=== PATIENT | male | born 1985 | race Caucasian/White ===

== ENCOUNTER 2020-06-07 20:17 | Emergency (ER) | payer SELFPAY ==
[~2020-06-07] VITALS: Ht 170 cm; Wt 70.3 kg
[2020-06-07] MEDS ORDERED: NS IV 1000 ML 1,000 ML ONE (20:35)
[2020-06-07] MEDS ORDERED: ONDANSETRON 4 MG/2 ML (SDV) Z0FRAN ONE (20:36)
[2020-06-07] MEDS ORDERED: NS IV 1000 ML 1,000 ML IV STA ×2 (20:42→21:42)
[2020-06-07] MEDS ORDERED: ONDANSETRON 4 MG/2 ML (SDV) Z0FRAN IVP ONE (20:45)
--- NOTE | 2020-06-07 20:47 | ED General ---
General Chief Complaint: Cough/Cold/Flu Symptoms Stated Complaint: NAUSEA;VOMITING;GEN BODY ACHES;COUGH;SOB Source of Information: Patient Exam Limitations: No Limitations History of Present Illness Date Seen by Provider: Jun 07, 2020 Time Seen by Provider: 20:45 Initial Comments Patient is a 34-year-old male who presents to the emergency room today with a chief complaint of 3 days of nausea and vomiting. Patient states he cannot hold anything down even sips of water. Patient denies any sick contacts. He denies any bad food exposures. No recent travel. No sick contacts. Patient denies fevers or chills. He denies URI symptoms. He has a slight cough and shortness of breath with nausea. He denies problems urinating and states that his urine is actually pretty clear. No diarrhea and states that he is having formed stools. Denies black or bloody stools. States that he is a recovering alcoholic but drank some alcohol this morning to see if he could keep food down. States he had no more than a "shot" of liquor this morning. Patient states that he has a history of pancreatitis in the past x2 and this feels different. All other review of systems reviewed and negative except as stated. Timing/Duration: 3-4 Days Severity: Moderate Modifying Factors: worse with Eating Associated Systoms: Malaise, Nausea/Vomiting Allergies and Home Medications Allergies Coded Allergies: kiwi (Verified Allergy, Unknown, 06/07/20) Patient Home Medication List Home Medication List Reviewed: Yes Review of Systems Review of Systems Constitutional: see HPI EENTM: no symptoms reported Respiratory: cough, dyspnea on exertion Gastrointestinal: No constipation, No diarrhea; nausea, vomiting Genitourinary: no symptoms reported Musculoskeletal: no symptoms reported Skin: lumps (Chronic lesions to the subcutaneous tissues of the abdomen and bilateral upper extremities noted, patient states he has "100s"; told they are "benign") All Other Systems Reviewed Negative Unless Noted: Yes Physical Exam Vital Signs Vital Signs - First Documented 06/07/20 20:30 Temp 36.9 Pulse 61 Resp 16 B/P (MAP) 113/67 (82) Pulse Ox 96 O2 Delivery Room Air Capillary Refill : Height, Weight, BMI Height: '" Weight: lbs. oz. kg; BMI Method: General Appearance: No Apparent Distress, WD/WN Eyes: Bilateral Eye PERRL, Bilateral Eye EOMI Neck: Normal Inspection, Non Tender, Supple Respiratory: Chest Non Tender, Lungs Clear, Normal Breath Sounds, No Accessory Muscle Use, No Respiratory Distress Cardiovascular: Regular Rate, Rhythm Gastrointestinal: Normal Bowel Sounds, Soft, Tenderness (Diffuse mild tenderness most pronounced in the epigastrium) Extremity: Normal Capillary Refill, Normal Inspection, Normal Range of Motion, Non Tender, No Pedal Edema Neurologic/Psychiatric: Alert, Oriented x3, No Motor/Sensory Deficits, Normal Mood/Affect, dining room manager II-XII Norm as Tested Skin: Normal Color, Warm/Dry Progress/Results/Core Measures Suspected Sepsis SIRS Temperature: Pulse: Respiratory Rate: Laboratory Tests 06/07/20 20:39: White Blood Count 7.8 Blood Pressure / Mean: Laboratory Tests 06/07/20 20:39: Creatinine 0.92, Platelet Count 347, Total Bilirubin 0.7 Results/Orders Lab Results Laboratory Tests Test 06/07/20 20:39 06/07/20 20:43 06/07/20 20:56 Range/Units White Blood Count 7.8 4.3-11.0 10^3/uL Red Blood Count 4.79 4.30-5.52 10^6/uL Hemoglobin 15.6 13.3-17.7 g/dL Hematocrit 45 40-54 % Mean Corpuscular Volume 93 80-99 fL Mean Corpuscular Hemoglobin 33 25-34 pg Mean Corpuscular Hemoglobin Concent 35 32-36 g/dL Red Cell Distribution Width 11.5 10.0-14.5 % Platelet Count 347 130-400 10^3/uL Mean Platelet Volume 8.8 L 9.0-12.2 fL Immature Granulocyte % (Auto) 0 % Neutrophils (%) (Auto) 48 42-75 % Lymphocytes (%) (Auto) 41 12-44 % Monocytes (%) (Auto) 7 0-12 % Eosinophils (%) (Auto) 4 0-10 % Basophils (%) (Auto) 1 0-10 % Neutrophils # (Auto) 3.7 1.8-7.8 10^3/uL Lymphocytes # (Auto) 3.2 1.0-4.0 10^3/uL Monocytes # (Auto) 0.6 0.0-1.0 10^3/uL Eosinophils # (Auto) 0.3 0.0-0.3 10^3/uL Basophils # (Auto) 0.1 0.0-0.1 10^3/uL Immature Granulocyte # (Auto) 0.0 0.0-0.1 10^3/uL Sodium Level 138 135-145 MMOL/L Potassium Level 3.7 3.6-5.0 MMOL/L Chloride Level 103 98-107 MMOL/L Carbon Dioxide Level 22 21-32 MMOL/L Anion Gap 13 5-14 MMOL/L Blood Urea Nitrogen 16 7-18 MG/DL Creatinine 0.92 0.60-1.30 MG/DL Estimat Glomerular Filtration Rate > 60 BUN/Creatinine Ratio 17 Glucose Level 111 H 70-105 MG/DL Calcium Level 8.7 8.5-10.1 MG/DL Corrected Calcium 8.4 L 8.5-10.1 MG/DL Total Bilirubin 0.7 0.1-1.0 MG/DL Aspartate Amino Transf (AST/SGOT) 50 H 5-34 U/L Alanine Aminotransferase (ALT/SGPT) 63 H 0-55 U/L Alkaline Phosphatase 71 40-136 U/L Total Protein 7.0 6.4-8.2 GM/DL Albumin 4.4 3.2-4.5 GM/DL Lipase 18 8-78 U/L Coronavirus 2019 (BETO) Negative Negative Urine Color YELLOW Urine Clarity CLEAR Urine pH 6.5 5-9 Urine Specific [place] 1.010 L 1.016-1.022 Urine Protein NEGATIVE NEGATIVE Urine Glucose (UA) NEGATIVE NEGATIVE Urine Ketones NEGATIVE NEGATIVE Urine Nitrite NEGATIVE NEGATIVE Urine Bilirubin NEGATIVE NEGATIVE Urine Urobilinogen 0.2 < = 1.0 MG/DL Urine Leukocyte Esterase NEGATIVE NEGATIVE Urine RBC (Auto) NEGATIVE NEGATIVE Urine RBC NONE /HPF Urine WBC NONE /HPF Urine Crystals PRESENT H /LPF Urine Amorphous Sediment RARE PADMINI URATES H /LPF Urine Bacteria NEGATIVE /HPF Urine Casts NONE /LPF Urine Mucus NEGATIVE /LPF Urine Culture Indicated NO My Orders Orders - ALIX CONTRERAS MD Covid 19 Inhouse Test (06/07/20 20:19) Influenza A And B Antigens (06/07/20 20:19) Ns Iv 1000 Ml (Sodium Chloride 0.9%) (06/07/20 20:35) Ondansetron Injection (Zofran Injectio (06/07/20 20:36) Ed Iv/Invasive Line Start (06/07/20 20:42) Cbc With Automated Diff (06/07/20 20:42) Comprehensive Metabolic Panel (06/07/20 20:42) Lipase (06/07/20 20:42) Ua Culture If Indicated (06/07/20 20:42) Ondansetron Injection (Zofran Injectio (06/07/20 20:45) Ns Iv 1000 Ml (Sodium Chloride 0.9%) (06/07/20 20:42) Promethazine Injection (Phenergan Injec (06/07/20 21:45) Ns Iv 1000 Ml (Sodium Chloride 0.9%) (06/07/20 21:42) Medications Given in ED Current Medications Medications Dose Ordered Sig/Mary Route Start Time Stop Time Status Last Admin Dose Admin Ondansetron HCl 8 mg ONCE ONCE IVP 06/07/20 20:45 06/07/20 20:46 DC 06/07/20 20:45 8 MG Promethazine HCl 25 mg ONCE ONCE IVP 06/07/20 21:45 06/07/20 21:46 DC 06/07/20 21:48 25 MG Sodium Chloride 1,000 ml @ STK-MED ONCE .ROUTE 06/07/20 20:35 06/07/20 20:39 DC 06/07/20 20:45 1,000 MLS/HR Vital Signs/I&O 06/07/20 20:30 Temp 36.9 Pulse 61 Resp 16 B/P (MAP) 113/67 (82) Pulse Ox 96 O2 Delivery Room Air Capillary Refill : Progress Note : Time: 21:42 Progress Note Reevaluated patient after first liter of fluids, still has some intermittent nausea. Will treat with a second liter of fluids as well as 25 of Phenergan and his liter of IV fluids. Patient's labs have been reviewed and are unremarkable. Patient anticipated discharge with Phenergan for home Departure Impression Primary Impression: Gastritis Qualified Codes: K29.00 - Acute gastritis without bleeding Disposition: HOME, SELF-CARE Condition: Stable Departure-Patient Inst. Decision time for Depature: 22:17 Referrals: NO,LOCAL PHYSICIAN (PCP) Primary Care Physician Patient Instructions: Gastritis ED Add. Discharge Instructions: Drink plenty of clear liquids to stay well-hydrated. Stick with water if you can; you can also drink Gatorade or [employer] dunaway. Slowly advance your diet as tolerated. I have written you a prescription for some Bentyl for abdominal pain as well as Phenergan for nausea. Take these as needed for severe nausea with the pain. I have sent your prescriptions to [facility] . Come back to the emergency room in 24 hours (or sooner) if your symptoms are worsening for reevaluation. Follow-up with a primary care physician. Scripts Dicyclomine HCl (Dicyclomine HCl) 20 Mg Tablet 20 MG PO Q6H PRN for CRAMPS, #20 TAB Prov: ALIX CONTRERAS MD 06/07/20 Promethazine HCl (Promethazine Tablet) 25 Mg Tablet 25 MG PO Q6H PRN for NAUSEA/VOMITING, #10 TAB Prov: ALIX CONTRERAS MD 06/07/20 ALIX CONTRERAS MD Jun 07, 2020 20:47
[2020-06-07 20:51] LABS: BASOPHILS # (AUTO) 0.1 10^3/uL (0.0-0.1); BASOPHILS % (AUTO) 1 % (0-10); EOSINOPHILS # (AUTO) 0.3 10^3/uL (0.0-0.3); EOSINOPHILS % (AUTO) 4 % (0-10); HEMATOCRIT 45 % (40-54); HEMOGLOBIN 15.6 g/dL (13.3-17.7); LYMPHOCYTES # (AUTO) 3.2 10^3/uL (1.0-4.0); LYMPHOCYTES % (AUTO) 41 % (12-44); MEAN CORPUSCULAR HEMOGLOBIN 33 pg (25-34); MEAN CORPUSCULAR HGB CONC 35 g/dL (32-36); MEAN CORPUSCULAR VOLUME 93 fL (80-99); MEAN PLATELET VOLUME 8.8 fL (9.0-12.2); MONOCYTES # (AUTO) 0.6 10^3/uL (0.0-1.0); MONOCYTES % (AUTO) 7 % (0-12); NEUTROPHILS # (AUTO) 3.7 10^3/uL (1.8-7.8); NEUTROPHILS % (AUTO) 48 % (42-75); PLATELET COUNT 347 10^3/uL (130-400); WHITE BLOOD COUNT 7.8 10^3/uL (4.3-11.0)
[2020-06-07 21:03] LABS: BILIRUBIN,URINE NEGATIVE (NEGATIVE); CLARITY,URINE CLEAR; COLOR,URINE YELLOW; GLUCOSE, URINE (UA) NEGATIVE (NEGATIVE); KETONES,URINE NEGATIVE (NEGATIVE); LEUKOCYTE ESTERASE ,URINE NEGATIVE (NEGATIVE); NITRITE,URINE NEGATIVE (NEGATIVE); PH,URINE 6.5 (5-9); PROTEIN,URINE NEGATIVE (NEGATIVE)
[2020-06-07 21:04] LABS: ALBUMIN 4.4 GM/DL (3.2-4.5); CHLORIDE 103 MMOL/L (98-107); POTASSIUM 3.7 MMOL/L (3.6-5.0); SODIUM 138 MMOL/L (135-145)
[2020-06-07 21:06] LABS: CALCIUM 8.7 MG/DL (8.5-10.1)
[2020-06-07 21:07] LABS: GLUCOSE 111 MG/DL (70-105)
[2020-06-07 21:08] LABS: CARBON DIOXIDE 22 MMOL/L (21-32)
[2020-06-07 21:09] LABS: BILIRUBIN,TOTAL 0.7 MG/DL (0.1-1.0)
[2020-06-07 21:10] LABS: ALKALINE PHOSPHATASE 71 U/L (40-136); CREATININE SERUM 0.92 MG/DL (0.60-1.30); GFR ESTIMATED > 60
[2020-06-07 21:11] LABS: BUN/CREATININE RATIO 17
[2020-06-07 21:13] LABS: ALANINE AMINOTRANSFERASE 63 U/L (0-55)
[2020-06-07 21:14] LABS: LIPASE 18 U/L (8-78)
[2020-06-07 21:43] LABS: AMORPHOUS SEDIMENT,UR RARE AMOR URATES /LPF; BACTERIA,URINE NEGATIVE /HPF
[2020-06-07] MEDS ORDERED: PROMETHAZINE INJ 25 MG/ML (PHENERGAN) AMP IVP ONE (21:45)
[2020-06-07] MEDS ORDERED: RX-DICYCLOMINE 10 MG (BENTYL) CAP PPK#4 PO STA (22:16)
[2020-06-07] MEDS ORDERED: DICY20TA10 PO (22:23)
[2020-06-07] MEDS ORDERED: PROM25TA14 PO (22:23)
[2020-06-07] MEDS ORDERED: DICYCLOMINE 10 MG (BENTYL) CAP PO STA (22:25)
[2020-06-07 22:42] VITALS: BP 113/65
== END 2020-06-07 22:45 | disposition home or self-care (01) ==
LOC: ER 20:22
DX: K29.70 Gastritis, unspecified, without bleeding (principal); Z20.828 Contact with and (suspected) exposure to other viral communicable diseases
CPT/HCPCS: 80053; 81000; 83690; 85025; 87804; 99284; U0002; 36415; 87635

== ENCOUNTER 2020-07-19 03:37 | Emergency (ER) | payer SELFPAY ==
[~2020-07-19] VITALS: Ht 173 cm; Wt 70.0 kg
[~2020-07-19 03:37] MED LIST: DICY20TA10 PO; PROM25TA14 PO
[2020-07-19] MEDS ORDERED: LACTATED RINGERS 1,000 ML IV ONE (04:15)
--- NOTE | 2020-07-19 04:16 | ED Abdominal Pain ---
General Chief Complaint: Back Problems Stated Complaint: BACK PAIN;ABD PAIN Nursing Triage Note: patient complaint of fall yesterday, states back pain since last night, patient states abdominal pain x1 week. 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 NO TESTS WERE DONE, PER PT HAS NOT HAD ANY NAUSEA/VOMITING FOR AT LEAST 4 DAYS AND IS NOT NAUSEATED NOW NO DIARRHEA OR CONSTIPATION NO FEVER/SWEATS/CHILLS NO URINARY SYMPTOMS PAIN HAS BEEN WORSE SINCE LAST NIGHT YESTERDAY, HE SLIPPED AND FELL ON WET FLOOR, LANDING ON BUTTOCKS SINCE THEN HE HAS BEGAN TO HAVE MID BACK PAIN WELL DID NOT HIT HEAD AND NO LOSS OF CONSCIOUSNESS. NO NECK PAIN NO PARESTHESIAS OR MOTOR DEFICITS NO PROBLEMS WITH BOWEL OR BLADDER FUNCTION HAS NOT TAKEN ANYTHING FOR SYMPTOMS PT HAS HISTORY OF PANCREATITIS, AND POSSIBLE GASTRITIS PT STATES HE IS A "RECOVERING ALCOHOLIC" --WAS IN [facility] IN [place], BUT LAST DRINK WAS A MONTH AGO WAS SEEN HERE 06/07/21 FOR EPIGASTRIC PAIN AND NAUSEA/VOMITING AND HAD HAD ALCOHOL THAT DAY. WAS DX WITH GASTRITIS AT THAT TIME. HAS HAD THIS PAIN OFF AND ON, BUT NEVER SOUGHT CARE. STATES NSAIDS CAUSE SIGNIFICANT ABDOMINAL PAIN. SOME FOODS ALSO CAUSE PAIN. PCP: [facility] Allergies and Home Medications Allergies Coded Allergies: kiwi (Verified Allergy, Unknown, 06/07/20) Home Medications Dicyclomine HCl 20 Mg Tablet, 20 MG PO Q6H PRN for CRAMPS Prescribed by: ALIX CONTRERAS on 06/07/203 Dicyclomine HCl 20 Mg Tablet, 20 MG PO Q6H Prescribed by: KRISTY LUCERO on 07/19/20 0553 Hyoscyamine Sulfate 0.125 Mg Tab.subl, 0.25 MG SL Q4H Prescribed by: KRISTY LUCERO on 07/19/20 0553 Pantoprazole Sodium 40 Mg Tablet.dr, 40 MG PO DAILY Prescribed by: KRISTY LUCERO on 07/19/20 0553 Promethazine HCl 25 Mg Tablet, 25 MG PO Q6H PRN for NAUSEA/VOMITING Prescribed by: ALIX CONTRERAS on 06/07/202222 Sucralfate 1 Gm Tablet, 1 GM PO QID Prescribed by: KRISTY LUCERO on 07/19/20 0506 Patient Home Medication List Home Medication List Reviewed: Yes Review of Systems Review of Systems Constitutional: no symptoms reported; No chills, No diaphoresis, No fever Respiratory: No Symptoms Reported Cardiovascular: No Symptoms Reported Gastrointestinal: See HPI, Abdominal Pain; Denies Constipated, Denies Diarrhea; Nausea, Vomiting Genitourinary: No Symptoms Reported Musculoskeletal: see HPI, back pain Skin: no symptoms reported Psychiatric/Neurological: No Symptoms Reported Endocrine: No Symptoms Reported Hematologic/Lymphatic: No Symptoms Reported Past Qjfscyh-Cupdqs-Upfrgs Hx Past Med/Social Hx: Reviewed and Corrections made Patient Social History Alcohol Use: Regular Use Drug of Choice: DENIES Smoking Status: Never a Smoker 2nd Hand Smoke Exposure: No Recent Infectious Disease Expo: No Recent Hopitalizations: No Seasonal Allergies Seasonal Allergies: No Past Medical History Surgeries: Yes (LEFT SHOULDER) Orthopedic Respiratory: No Cardiac: No Neurological: Yes (ALCOHOL WITHDRAWL SEIZURES. DOES NOT TAKE SEIZURE MEDICATIO N) Genitourinary: No Gastrointestinal: Yes (POSSIBLE GASTRITIS) Pancreatitis Musculoskeletal: Yes (LEFT SHOUDLER SURGERY) Endocrine: No HEENT: No Cancer: No Psychosocial: Yes (ALCOHOLISM) Integumentary: Yes (benign lipomas) Physical Exam Vital Signs Vital Signs - First Documented 07/19/20 04:00 Temp 36.2 Pulse 67 Resp 18 B/P (MAP) 132/93 (106) Pulse Ox 98 O2 Delivery Room Air Capillary Refill : Less Than 3 Seconds Height/Weight/BMI Height: '" Weight: lbs. oz. kg; 23.00 BMI Method: General Appearance: WD/WN, no apparent distress, other (ANXIOUS, RAPID SPEECH, DIFFICULT TO KEEP ON SUBJECT. ) HEENT: No scleral icterus (R), No scleral icterus (L), No pale conjunctivae (R), No pale conjunctivae (L) Respiratory: normal breath sounds, no respiratory distress, no accessory muscle use Cardiovascular: regular rate, rhythm, no murmur Gastrointestinal: soft; No distended, No guarding, No rebound; tenderness (EPIGASTRIC TENDERNESS); No hernia, No mass Extremities: normal inspection Back: no CVA tenderness, vertebral tenderness (LOWER THORACIC/UPPER LUMBAR TENDERNESS. NO EXTERNAL EVIDENCE OF TRAUMA) Neurologic/Psychiatric: scientist propagator II-XII nml as tested, no motor/sensory deficits, alert, oriented x 3 Skin: normal color, warm/dry; No rash; tattoos/piercings Progress/Results/Core Measures Results/Orders Lab Results Laboratory Tests Test 07/19/20 04:05 07/19/20 04:15 Range/Units White Blood Count 7.1 4.3-11.0 10^3/uL Red Blood Count 4.62 4.30-5.52 10^6/uL Hemoglobin 14.7 13.3-17.7 g/dL Hematocrit 42 40-54 % Mean Corpuscular Volume 91 80-99 fL Mean Corpuscular Hemoglobin 32 25-34 pg Mean Corpuscular Hemoglobin Concent 35 32-36 g/dL Red Cell Distribution Width 11.5 10.0-14.5 % Platelet Count 219 130-400 10^3/uL Mean Platelet Volume 9.5 9.0-12.2 fL Immature Granulocyte % (Auto) 0 % Neutrophils (%) (Auto) 58 42-75 % Lymphocytes (%) (Auto) 30 12-44 % Monocytes (%) (Auto) 7 0-12 % Eosinophils (%) (Auto) 4 0-10 % Basophils (%) (Auto) 1 0-10 % Neutrophils # (Auto) 4.1 1.8-7.8 10^3/uL Lymphocytes # (Auto) 2.2 1.0-4.0 10^3/uL Monocytes # (Auto) 0.5 0.0-1.0 10^3/uL Eosinophils # (Auto) 0.3 0.0-0.3 10^3/uL Basophils # (Auto) 0.0 0.0-0.1 10^3/uL Immature Granulocyte # (Auto) 0.0 0.0-0.1 10^3/uL Sodium Level 138 135-145 MMOL/L Potassium Level 3.9 3.6-5.0 MMOL/L Chloride Level 101 98-107 MMOL/L Carbon Dioxide Level 26 21-32 MMOL/L Anion Gap 11 5-14 MMOL/L Blood Urea Nitrogen 12 7-18 MG/DL Creatinine 0.93 0.60-1.30 MG/DL Estimat Glomerular Filtration Rate > 60 BUN/Creatinine Ratio 13 Glucose Level 109 H 70-105 MG/DL Calcium Level 9.5 8.5-10.1 MG/DL Corrected Calcium 9.2 8.5-10.1 MG/DL Magnesium Level 1.9 1.6-2.4 MG/DL Total Bilirubin 0.7 0.1-1.0 MG/DL Aspartate Amino Transf (AST/SGOT) 21 5-34 U/L Alanine Aminotransferase (ALT/SGPT) 37 0-55 U/L Alkaline Phosphatase 69 40-136 U/L Total Protein 7.1 6.4-8.2 GM/DL Albumin 4.4 3.2-4.5 GM/DL Amylase Level 51 25-125 U/L Lipase 93 H 8-78 U/L Serum Alcohol < 10 <10 MG/DL Urine Color YELLOW Urine Clarity SL CLOUDY Urine pH 6.0 5-9 Urine Specific [place] 1.020 1.016-1.022 Urine Protein NEGATIVE NEGATIVE Urine Glucose (UA) NEGATIVE NEGATIVE Urine Ketones NEGATIVE NEGATIVE Urine Nitrite NEGATIVE NEGATIVE Urine Bilirubin NEGATIVE NEGATIVE Urine Urobilinogen 0.2 < = 1.0 MG/DL Urine Leukocyte Esterase NEGATIVE NEGATIVE Urine RBC (Auto) NEGATIVE NEGATIVE Urine RBC NONE /HPF Urine WBC NONE /HPF Urine Squamous Epithelial Cells RARE /HPF Urine Crystals NONE /LPF Urine Bacteria NEGATIVE /HPF Urine Casts NONE /LPF Urine Mucus NEGATIVE /LPF Urine Culture Indicated NO Urine Opiates Screen NEGATIVE NEGATIVE Urine Oxycodone Screen NEGATIVE NEGATIVE Urine Methadone Screen NEGATIVE NEGATIVE Urine Propoxyphene Screen NEGATIVE NEGATIVE Urine Barbiturates Screen NEGATIVE NEGATIVE Ur Tricyclic Antidepressants Screen NEGATIVE NEGATIVE Urine Phencyclidine Screen NEGATIVE NEGATIVE Urine Amphetamines Screen NEGATIVE NEGATIVE Urine Methamphetamines Screen NEGATIVE NEGATIVE Urine Benzodiazepines Screen NEGATIVE NEGATIVE Urine Cocaine Screen NEGATIVE NEGATIVE Urine Cannabinoids Screen NEGATIVE NEGATIVE My Orders Orders - KRISTY LUCERO DO Ed Iv/Invasive Line Start (07/19/20 04:04) Alcohol (07/19/20 04:04) Amylase (07/19/20 04:04) Cbc With Automated Diff (07/19/20 04:04) Comprehensive Metabolic Panel (07/19/20 04:04) Drug Screen Stat (Urine) (07/19/20 04:04) Lipase (07/19/20 04:04) Magnesium (07/19/20 04:04) Ua Culture If Indicated (07/19/20 04:04) Ed Iv/Invasive Line Start (07/19/20 04:04) Lactated Ringers (Lr 1000 Ml Iv Solution (07/19/20 04:15) Ct Abdomen/Pelvis W (07/19/20 04:25) Acute Abd Series (07/19/20 04:25) Iohexol Injection (Omnipaque 350 Mg/Ml 1 (07/19/20 05:45) Received Contrast (Hold Metformin- Contr (07/19/20 05:45) Sodium Chloride Flush (Catheter Flush Sy (07/19/20 05:45) Ns (Ivpb) (Sodium Chloride 0.9% Ivpb Bag (07/19/20 05:45) Medications Given in ED Current Medications Medications Dose Ordered Sig/Mary Route Start Time Stop Time Status Last Admin Dose Admin Iohexol 100 ml ONCE ONCE IV 07/19/20 05:45 07/19/20 05:46 DC 07/19/20 05:48 88 ML Lactated Ringer's 1,000 ml @ 0 mls/hr Q0M ONCE IV 07/19/20 04:15 07/19/20 04:16 DC 07/19/20 04:15 0 MLS/HR Sodium Chloride 10 ml NEEDED PRN IV 07/19/20 05:45 07/19/20 05:48 10 ML Sodium Chloride 100 ml ONCE ONCE IV 07/19/20 05:45 07/19/20 05:46 DC 07/19/20 05:48 80 ML Vital Signs/I&O 07/19/20 04:00 Temp 36.2 Pulse 67 Resp 18 B/P (MAP) 132/93 (106) Pulse Ox 98 O2 Delivery Room Air Blood Pressure Mean: 106 Progress Progress Note : Progress Note UNEVENTFUL ER STAY SYMPTOM FREE AT DISMISSAL WILL REFER TO SURGEON FOR FURTHER EVALUATION Diagnostic Imaging Comments ABDOMEN XRAYS--NON SPECIFIC GAS PATTERN, PENDING RADIOLOGIST REVIEW CT ABDOMEN/PELVIS--NO ACUTE PROCESS, PER [facility] VIA FAX AT 1027 Departure Impression Primary Impression: Epigastric abdominal pain Additional Impressions: POSSIBLE GASTRITIS Back strain Disposition: HOME, SELF-CARE Condition: Stable Departure-Patient Inst. Referrals: EVAN BAER DO [facility] [place] Instructions: Abdominal Pain, Adult ED, Back Muscle Strain (DC), Carly ritis ED, Ulcer and Gastritis Diet Add. Discharge Instructions: CLEAR LIQUIDS--WATER, BROTH, JELLO, GATORADE TOMORROW IF YOU ARE FEELING BETTER, ADD BRATS DIET TO CLEAR LIQUIDS--BANANAS, RICE, APPLESAUCE, TOAST, SALTINES TYLENOL NEEDED FOR PAIN FOLLOW UP WITH DR. BAER THIS WEEK FOR FURTHER CARE All discharge instructions reviewed with patient and/or family. Voiced understanding. Scripts Dicyclomine HCl (Dicyclomine HCl) 20 Mg Tablet 20 MG PO Q6H for Abdominal Pain, #20 TAB Prov: KRISTY LUCERO DO 07/19/20 Hyoscyamine Sulfate (Levsin-Sl) 0.125 Mg Tab.subl 0.25 MG SL Q4H, #20 TAB Prov: KRISTY LUCERO DO 07/19/20 Sucralfate (Carafate) 1 Gm Tablet 1 GM PO QID, #60 TAB Prov: KRISTY LUCERO DO 07/19/20 Pantoprazole Sodium (Protonix) 40 Mg Tablet.dr 40 MG PO DAILY, #15 TAB Prov: KRISTY LUCERO DO 07/19/20 KRISTY LUCERO DO Jul 19, 2020 04:16
[2020-07-19 04:28] LABS: BASOPHILS % (AUTO) 1 % (0-10); EOSINOPHILS # (AUTO) 0.3 10^3/uL (0.0-0.3); EOSINOPHILS % (AUTO) 4 % (0-10); HEMATOCRIT 42 % (40-54); HEMOGLOBIN 14.7 g/dL (13.3-17.7); LYMPHOCYTES # (AUTO) 2.2 10^3/uL (1.0-4.0); LYMPHOCYTES % (AUTO) 30 % (12-44); MEAN CORPUSCULAR HEMOGLOBIN 32 pg (25-34); MEAN CORPUSCULAR HGB CONC 35 g/dL (32-36); MEAN CORPUSCULAR VOLUME 91 fL (80-99); MEAN PLATELET VOLUME 9.5 fL (9.0-12.2); MONOCYTES # (AUTO) 0.5 10^3/uL (0.0-1.0); MONOCYTES % (AUTO) 7 % (0-12); NEUTROPHILS # (AUTO) 4.1 10^3/uL (1.8-7.8); NEUTROPHILS % (AUTO) 58 % (42-75); PLATELET COUNT 219 10^3/uL (130-400); WHITE BLOOD COUNT 7.1 10^3/uL (4.3-11.0)
[2020-07-19 04:32] LABS: ALBUMIN 4.4 GM/DL (3.2-4.5); CHLORIDE 101 MMOL/L (98-107); POTASSIUM 3.9 MMOL/L (3.6-5.0); SODIUM 138 MMOL/L (135-145)
[2020-07-19 04:33] LABS: CALCIUM 9.5 MG/DL (8.5-10.1)
[2020-07-19 04:34] LABS: AMYLASE 51 U/L (25-125); GLUCOSE 109 MG/DL (70-105)
[2020-07-19 04:35] LABS: TOTAL PROTEIN 7.1 GM/DL (6.4-8.2)
[2020-07-19 04:36] LABS: BILIRUBIN,TOTAL 0.7 MG/DL (0.1-1.0); CARBON DIOXIDE 26 MMOL/L (21-32)
[2020-07-19 04:38] LABS: ALKALINE PHOSPHATASE 69 U/L (40-136); CREATININE SERUM 0.93 MG/DL (0.60-1.30); GFR ESTIMATED > 60
[2020-07-19 04:39] LABS: BUN/CREATININE RATIO 13
[2020-07-19 04:41] LABS: ALANINE AMINOTRANSFERASE 37 U/L (0-55); MAGNESIUM 1.9 MG/DL (1.6-2.4)
[2020-07-19 04:42] LABS: BILIRUBIN,URINE NEGATIVE (NEGATIVE); CLARITY,URINE SL CLOUDY; COLOR,URINE YELLOW; GLUCOSE, URINE (UA) NEGATIVE (NEGATIVE); KETONES,URINE NEGATIVE (NEGATIVE); LEUKOCYTE ESTERASE ,URINE NEGATIVE (NEGATIVE); NITRITE,URINE NEGATIVE (NEGATIVE); PROTEIN,URINE NEGATIVE (NEGATIVE)
[2020-07-19 04:43] LABS: LIPASE 93 U/L (8-78)
[2020-07-19 04:52] LABS: BACTERIA,URINE NEGATIVE /HPF; SQUAMOUS EPITHELIAL CELL,UR RARE /HPF
[2020-07-19 04:56] LABS: AMPHETAMINE SCREEN, URINE NEGATIVE (NEGATIVE); BARBITURATE SCREEN URINE NEGATIVE (NEGATIVE); BENZODIAZEPINES SCREEN URINE NEGATIVE (NEGATIVE); CANNABINOID SCREEN, URINE NEGATIVE (NEGATIVE); COCAINE SCREEN URINE NEGATIVE (NEGATIVE); METHADONE STAT NEGATIVE (NEGATIVE); METHAMPHETAMINE SCREEN URINE S NEGATIVE (NEGATIVE); OPIATE SCREEN URINE NEGATIVE (NEGATIVE); OXYCODONE STAT NEGATIVE (NEGATIVE); PROPOXYPHENE STAT NEGATIVE (NEGATIVE); TRICYCLIC ANTIDEPRESSANTS SCRE NEGATIVE (NEGATIVE)
[2020-07-19 05:35] VITALS: BP 132/93
[2020-07-19] MEDS ORDERED: NS 100 ML (IVPB) BAG IV ONE (05:45)
[2020-07-19] MEDS ORDERED: IOHEXOL 350 MG/ML 100 ML (OMNIPAQUE 350) VIAL IV ONE (05:45)
[2020-07-19] MEDS ORDERED: HOLD METFORMIN - RECEIVED CONTRAST 20 ML VIAL IV SCH (05:45)
[2020-07-19] MEDS ORDERED: CATHETER FLUSH 10 ML SYR IV PRN (05:45)
[2020-07-19] MEDS ORDERED: HYOS0.1283 SL (05:53)
[2020-07-19] MEDS ORDERED: PANT40TA2 PO (05:53)
[2020-07-19] MEDS ORDERED: SUCR1TAB36 PO (05:53)
[2020-07-19] MEDS ORDERED: DICY20TA10 PO (05:53)
--- NOTE | 2020-07-19 06:40 | Diagnostic Imaging Report ---
PROCEDURE: CT abdomen and pelvis with contrast. TECHNIQUE: Multiple contiguous axial images were obtained through the abdomen and pelvis after administration of intravenous contrast. Auto Exposure Controls were utilized during the CT exam to meet ALARA standards for radiation dose reduction. All CT scans use one or more of the following dose optimizing techniques: automated exposure control, MA and/or KvP adjustment based on patient size and exam type or iterative reconstruction. INDICATION: Epigastric pain with nausea and vomiting. No prior studies are available for comparison. The liver demonstrates generalized low density consistent with hepatic steatosis. No discrete liver mass is detected. Gallbladder is unremarkable. No biliary ductal dilatation is seen. Pancreas and spleen are unremarkable. No adrenal mass is detected. Kidneys are unremarkable. Aorta is non-aneurysmal. The small and large bowel loops are normal in caliber. There is no obstruction. No free fluid or fluid collection is identified. The bladder and prostate are unremarkable. No inflammatory changes are seen. Appendix is unremarkable. IMPRESSION: Unremarkable CT of the abdomen and pelvis with contrast apart from hepatic steatosis. No acute abnormality is detected. Dictated by: Dictated on workstation # [id number]
--- NOTE | 2020-07-19 06:56 | Diagnostic Imaging Report ---
INDICATION: Abdominal pain, vomiting, and nausea. FINDINGS: The heart size is normal. Lungs are clear. There is no pleural effusion or pneumothorax. Mediastinum is unremarkable. Bowel gas pattern is nonspecific. There is no free air. There are no abnormal abdominal calcifications. IMPRESSION: No acute cardiopulmonary abnormality Nonspecific bowel gas pattern Dictated by: Dictated on workstation # [id number]
== END 2020-07-19 05:45 | disposition home or self-care (01) ==
LOC: EDUNIT# 03:37 → ER 03:38
DX: S39.012A Strain of muscle, fascia and tendon of lower back, initial encounter (principal); S29.012A Strain of muscle and tendon of back wall of thorax, initial encounter; R10.13 Epigastric pain; F41.9 Anxiety disorder, unspecified; W01.0XXA Fall on same level from slipping, tripping and stumbling without subsequent striking against object, initial encounter
CPT/HCPCS: 74022; 74177; 80053; 80306; 81000; 82150; 83690; 83735; 85025; G0480; 36415; 80320

== ENCOUNTER 2020-10-19 21:48 | Emergency (ER) | payer SELFPAY ==
[~2020-10-19] VITALS: Ht 170.2 cm; Wt 60.0 kg
[~2020-10-19 21:48] MED LIST changes: +HYOS0.1283 SL; +PANT40TA2 PO; +SUCR1TAB36 PO
[2020-10-19 23:00] LABS: BILIRUBIN,URINE NEGATIVE (NEGATIVE); CLARITY,URINE CLEAR; COLOR,URINE YELLOW; GLUCOSE, URINE (UA) NEGATIVE (NEGATIVE); KETONES,URINE NEGATIVE (NEGATIVE); LEUKOCYTE ESTERASE ,URINE NEGATIVE (NEGATIVE); NITRITE,URINE NEGATIVE (NEGATIVE); PROTEIN,URINE 2+ (NEGATIVE)
[2020-10-19 23:07] LABS: BACTERIA,URINE NEGATIVE /HPF; WBC,URINE 0-2 /HPF
[2020-10-20] MEDS ORDERED: ONDA4TAB11 SL (00:28)
--- NOTE | 2020-10-20 00:28 | ED GI ---
General Chief Complaint: Abdominal/GI Problems Stated Complaint: N/V Nursing Triage Note: PT AMB TO ROOM 5 W/ CO NAUSEA FOR 2 HOURS [employer]. PT STATES HE IS 1 YEAR SOBER AND CONSUMED 1 PINT OF VODKA TODAY. PT STATES HIS LAST DRINK WAS AT 1700. Sepsis Screen: No Definite Risk Source of Information: Patient Exam Limitations: No Limitations History of Present Illness Date Seen by Provider: October 19, 2020 Time Seen by Provider: 22:45 Initial Comments This 35-year-old gentleman presents to the emergency room after relapsing with alcohol consumption after a long period of sobriety. He is primarily concerned about the consequences of his relapse in regard to the [place] house he is staying in. He is wondering if there is anything that can be done to expedite his alcohol metabolism. He also has tremors and believes he is going into withdrawal. He states in the past he has withdrawn even if he only has one episode of alcohol consumption after a very long period of sobriety. He appears anxious about his social circumstances. He also has nausea. He states he was sober until today and his relapse has only involved 1 episode of alcohol consumption today. Allergies and Home Medications Allergies Coded Allergies: kiwi (Verified Allergy, Unknown, 06/07/20) Home Medications Dicyclomine HCl 20 Mg Tablet, 20 MG PO Q6H PRN for CRAMPS Prescribed by: ALIX CONTRERAS on 06/07/202222 Dicyclomine HCl 20 Mg Tablet, 20 MG PO Q6H Prescribed by: KRISTY LUCERO on 07/19/20 0553 Hyoscyamine Sulfate 0.125 Mg Tab.subl, 0.25 MG SL Q4H Prescribed by: KRISTY LUCERO on 07/19/20 0553 Ondansetron 4 Mg Tab.rapdis, 4 MG SL Q4H PRN for NAUSEA/VOMITING Prescribed by: LISA HARRIS on 10/20/20 0028 Pantoprazole Sodium 40 Mg Tablet.dr, 40 MG PO DAILY Prescribed by: KRISTY LUCERO on 07/19/20 0553 Promethazine HCl 25 Mg Tablet, 25 MG PO Q6H PRN for NAUSEA/VOMITING Prescribed by: ALIX CONTRERAS on 06/07/202222 Sucralfate 1 Gm Tablet, 1 GM PO QID Prescribed by: KRISTY LUCERO on 07/19/20 0553 Patient Home Medication List Home Medication List Reviewed: Yes Review of Systems Review of Systems Constitutional: no symptoms reported EENTM: No Symptoms Reported Respiratory: No Symptoms Reported Cardiovascular: No Symptoms Reported Gastrointestinal: See HPI Genitourinary: No Symptoms Reported Musculoskeletal: no symptoms reported Skin: no symptoms reported Psychiatric/Neurological: See HPI Endocrine: No Symptoms Reported Hematologic/Lymphatic: No Symptoms Reported Past Afhptwc-Xnoukd-Aluxaf Hx Past Med/Social Hx: Reviewed Nursing Past Med/Soc Hx Patient Social History Alcohol Use: Past History Alcohol Beverage of Choice: Vodka Drug of Choice: DENIES Smoking Status: Never a Smoker 2nd Hand Smoke Exposure: No Recent Infectious Disease Expo: No Recent Hopitalizations: No Seasonal Allergies Seasonal Allergies: No Past Medical History Surgeries: Yes (LEFT SHOULDER) Orthopedic Respiratory: No Cardiac: No Neurological: Yes (ALCOHOL WITHDRAWL SEIZURES. DOES NOT TAKE SEIZURE MEDICATION) Genitourinary: No Gastrointestinal: Yes (POSSIBLE GASTRITIS) Pancreatitis Musculoskeletal: Yes (LEFT SHOUDLER SURGERY) Endocrine: No HEENT: No Cancer: No Psychosocial: Yes (ALCOHOLISM) Integumentary: Yes (benign lipomas) Physical Exam Vital Signs Vital Signs - First Documented 10/19/20 22:52 Temp 35.6 Pulse 84 Resp 18 B/P (MAP) 137/101 (113) Pulse Ox 95 O2 Delivery Room Air Capillary Refill : Less Than 3 Seconds Height/Weight/BMI Height: '" Weight: lbs. oz. kg; 20.00 BMI Method: General Appearance: WD/WN, mild distress HEENT: normal ENT inspection Neck: normal inspection Respiratory: lungs clear, normal breath sounds, no respiratory distress Cardiovascular: regular rate, rhythm, no edema Gastrointestinal: non tender, soft Extremities: normal inspection, no pedal edema Neurologic/Psychiatric: photographic printer II-XII nml as tested, alert, oriented x 3, other (Anxious, intermittent tremors) Skin: normal color, warm/dry Progress/Results/Core Measures Results/Orders Lab Results Laboratory Tests Test 10/19/20 22:55 Range/Units Urine Color YELLOW Urine Clarity CLEAR Urine pH 6.0 5-9 Urine Specific [place] 1.025 H 1.016-1.022 Urine Protein 2+ H NEGATIVE Urine Glucose (UA) NEGATIVE NEGATIVE Urine Ketones NEGATIVE NEGATIVE Urine Nitrite NEGATIVE NEGATIVE Urine Bilirubin NEGATIVE NEGATIVE Urine Urobilinogen 0.2 < = 1.0 MG/DL Urine Leukocyte Esterase NEGATIVE NEGATIVE Urine RBC (Auto) NEGATIVE NEGATIVE Urine RBC NONE /HPF Urine WBC 0-2 /HPF Urine Squamous Epithelial Cells NONE /HPF Urine Renal Epithelial Cells NONE /HPF Urine Crystals NONE /LPF Urine Bacteria NEGATIVE /HPF Urine Casts NONE /LPF Urine Mucus NEGATIVE /LPF Urine Culture Indicated NO My Orders Orders - LISA CAPELLAN MD Ondansetron Oral Dissolve Tab (Zofran (10/20/20 00:30) Vital Signs/I&O 10/19/20 10/20/20 22:52 00:35 Temp 35.6 35.6 Pulse 84 77 Resp 18 16 B/P (MAP) 137/101 (113) 129/78 (113) Pulse Ox 95 97 O2 Delivery Room Air Room Air Blood Pressure Mean: 113 Progress Progress Note : Progress Note Vital signs were not suggestive of withdrawal. I explained to the patient that alcohol withdrawal should only occur if there is abstinence after a prolonged regular consumption of alcohol. Based on his stated history he should not be at risk for withdrawal. He was treated with Zofran. In regard to his social circumstances, there is not really anything that can be done from an emergency room perspective to help him keep his admittance to the [facility]. He expressed understanding. Departure Impression Primary Impression: Nausea alone Additional Impression: Alcoholism Disposition: 01 HOME, SELF-CARE Condition: Stable Departure-Patient Inst. Decision time for Depature: 00:26 Referrals: NO,LOCAL PHYSICIAN (PCP/Family) Primary Care Physician Patient Instructions: Alcohol Withdrawal Add. Discharge Instructions: Drink plenty of clear liquids. Abstain from alcohol. Return to the ER if you have worsening symptoms. You should not be truly undergoing alcohol withdrawal since you have only drank alcohol 1 day in the past several months. Call with questions or concerns. Return to the ER if you have worsening symptoms. Take Zofran as prescribed for nausea and vomiting. All discharge instructions reviewed with patient and/or family. Voiced understanding. Scripts Ondansetron (Ondansetron Odt) 4 Mg Tab.rapdis 4 MG SL Q4H PRN for NAUSEA/VOMITING, #10 TAB Prov: LISA CAPELLAN MD 10/20/20 LISA CAPELLAN MD October 20, 2020 00:28
[2020-10-20] MEDS ORDERED: ONDANSETRON 4 MG (ZOFRAN) ORAL DISSOLVE TAB SL ONE (00:30)
[2020-10-20 00:35] VITALS: BP 129/78
== END 2020-10-20 00:36 | disposition home or self-care (01) ==
LOC: EDUNIT# 21:48 → ER 21:49
DX: R11.0 Nausea (principal); F10.20 Alcohol dependence, uncomplicated
CPT/HCPCS: 81000; 99283